=== PATIENT | male | born 1955 | race Caucasian/White ===

== ENCOUNTER 2018-09-19 15:01 | Inpatient (IN) ==
[2018-09-19] MEDS ORDERED: *HR* Labetalol 20 MG/4 ML SYRINGE IVP PRN (16:35)
[2018-09-19] MEDS ORDERED: Naloxone 0.4 MG/ML INJ IVP PRN (16:35)
[2018-09-19] MEDS ORDERED: *HR* Heparin 5,000 UNIT/ML VIAL IVP PRN ×4 (16:35→19:24)
[2018-09-19] MEDS ORDERED: Ondansetron 4 MG/2 ML VIAL IVP PRN (16:35)
[2018-09-19] MEDS ORDERED: Acetaminophen 325 MG TABLET PO PRN (16:35)
[2018-09-19] MEDS ORDERED: *HR* OxyCODONE Immed Rel 5 MG TABLET PO PRN (16:35)
[2018-09-19] MEDS ORDERED: *HR* Heparin 5,000 UNIT/ML VIAL IVP ONE ×2 (16:35→19:24)
[2018-09-19] MEDS ORDERED: 0.9 % Sodium Chloride 1,000 ML IVC SCH (16:45)
[2018-09-19] MEDS ORDERED: Heparin 25,000 UNIT/250 ML D5W 25,000 UNIT/250 ML IV.SOLN IVC SCH ×2 (16:45→19:30)
[2018-09-19] MEDS ORDERED: D5% in Water 1,000 ML IVC PRN (16:52)
[2018-09-19] MEDS ORDERED: Dextrose Gel 15 GM/37.5 ML TUBE PO PRN ×2 (16:52)
[2018-09-19] MEDS ORDERED: *HR* Dextrose 50 % in Water (Syg) 50 ML SYRINGE IVP PRN (16:52)
--- NOTE | 2018-09-19 17:02 | Vascular/Endovascular H&P ---
Date of Encounter: 09/19/18 Time of Encounter: 15:00 Assessment and Plan (1) Atherosclerosis of [place] arteries of left leg with ulceration of other part of foot Current Visit: Yes Status: Chronic The patient has severe peripheral vascular disease. He was found have a left superficial femoral to popliteal artery occlusion. He was started on a heparin drip due to his progressive ischemia. Revascularization is recommended. The patient will be scheduled for a left femoral to popliteal artery bypass graft. The risks, benefits and alternatives were discussed and all questions were answered. (2) Diabetes mellitus with peripheral angiopathy without gangrene Current Visit: Yes Status: Chronic Qualifiers: Diabetes mellitus type: type 2 Diabetes mellitus emt intermediate insulin use: without nursing home use Qualified Code(s): E11.51 - Type 2 diabetes mellitus with diabetic peripheral angiopathy without gangrene (3) Tobacco abuse Current Visit: Yes Status: Chronic The patient was counter maximum visualization. He will use a nicotine patch. (4) Mixed hyperlipidemia Current Visit: Yes Status: Chronic (5) Essential hypertension Current Visit: Yes Status: Chronic The patient was counseled regarding atherosclerotic risk factor reduction. (6) Cellulitis Current Visit: Yes Status: Acute The patient is a chronic left lateral foot ulceration with surrounding erythema consistent with cellulitis. He has no fluctuance or purulence. He will be started on intravenous antibiotics. Qualifiers: Site of cellulitis: extremity Site of cellulitis of extremity: lower extr emity Laterality: left Qualified Code(s): L03.116 - Cellulitis of left lower limb (7) Coronary artery disease Current Visit: Yes Status: Chronic The patient recently underwent a nonexercise stress test. Stress test revealed evidence of stress-induced ischemia. Cardiology has been counseled for preoperative clearance and further evaluation and recommendations. Qualifiers: Coronary Disease-Associated Artery/Lesion type: [place] artery [place] vs. transplanted heart: [place] heart Associated angina: without angina Qualified Code(s): I25.10 - Atherosclerotic heart disease of [place] coronary artery without angina pectoris History of Present Illness Chief complaint: Peripheral vascular disease with ulceration HPI: Mr. Miramontes is a 63 year old male with a history of diabetes, hyperlipidemia, hypertension, tobacco abuse and peripheral vascular disease. The patient presented to clinic with peripheral vascular disease with a nonhealing ulceration. He underwent angiogram which revealed significant peripheral vascular disease. Patient presented to the hospital today underwent a nonexercise stress test. This process was noted to be abnormal. The patient reports progressive left lower extremity pain with evidence of progressive peripheral vascular disease. He currently denies chest pain or shortness of breath. He denies any fevers or chills. Past Med Surg Social Fam HX - Past Medical History Medical history: diabetes, hyperlipidemia, hypertension, myocardial infarction, peripheral artery disease Psychiatric history: no psych history - Past Surgical History Surgical History: no surgical history Additional surgical history: amputation left 4th toe 2010, rt hip repair 2017 - Social History Smoking Status: Current every day smoker Smokeless Tobacco Status: No Alcohol use: none Drug use: none - Family History Father History Unknown: Yes Mother History Unknown: Yes Medications and Allergies Acetaminophen [Tylenol] 1,000 mg PO Q6HR PRN #90 tablet 09/17/18 [Rx] Aspirin [Lo-Dose Aspirin EC] 81 mg PO DAILY 09/17/18 [History] Cilostazol [Pletal] 100 mg PO BID 09/17/18 [History] Collagenase Oint [Santyl] 1 appl TP DAILY 09/17/18 [History] Lisinopril [Zestril] 5 mg PO DAILY 09/17/18 [History] Metformin HCl 1,000 mg PO BID 09/17/18 [History] glipiZIDE [Glipizide] 10 mg PO BID 09/17/18 [History] Pioglitazone HCl [Actos] 45 mg PO DAILY 09/19/18 [History] Allergy/AdvReac Type Severity Reaction Status Date / Time steroids Allergy Swelling Uncoded 09/17/18 05:48 of Lip/Tongue/Throat All Systems Review: The remainder of the systems were reviewed and are negative - Constitutional Constitutional: no chills, no fever(s) - Cardiovascular Cardiovascular: no chest pain at rest, no dyspnea at rest Exam General: Present: Conversant HEENT: Present: Normocephaly, Trachea midline, Pupils equal Neck: Absent: JVD, Lymphadenopathy, Left Carotid bruit, Right Carotid bruit Cardiac: Present: Reg Rate and Rhythm, Normal S1 and S2 Lungs: Present: Normal Breath Sounds, No Wheeze, Rales, Rhonchi Neuro: Present: Alert and responsive, No focal deficits noted, Motor nerves grossly intact, Sensory nerves grossly intact Abdomen: Present: Soft, Non-tender Vascular: Present: Normal capillary refill, Pulse, absent (pedal signals monophasic). Absent: Cyanosis, Edema Skin: Present: Wound/ulcer(s) (Left lateral foot ulceration with surronding erythema, no fluctuance, purulence) Results - Imaging / Other Tests Non Invasive Vascular Testing: report reviewed
[2018-09-19 17:27] LABS: Hematocrit 33.6 % (37.5-50.1); Mean Corpuscular HGB Conc 32.7 g/dL (31.6-35.5); Mean Corpuscular Hemoglobin 30.7 pg (28.0-33.3); Mean Corpuscular Volume 93.9 fL (83.0-100.0); Mean Platelet Volume 11.1 fL (9.4-12.4); Platelet Count 171 K/mcL (140-400); Red Blood Count 3.58 M/mcL (4.19-5.50); Red Cell Distribution Width 13.9 % (11.5-14.5); White Blood Count 12.9 K/mcL (4.3-11.1)
[2018-09-19 17:35] LABS: INR 0.9; Prothrombin Time 10.7 Seconds (9.4-12.1)
[2018-09-19 18:44] LABS: Heparin anti-factor XA UFH 0.04 IU/mL (0.30-0.70)
[2018-09-19] MEDS: Insulin LISPRO 300 UNITS/3 ML VIAL SQ SCH (19:26)
[2018-09-19] MEDS: *HR* Metoprolol 5 MG/5 ML VIAL IVP SCH (19:33)
[2018-09-19] MEDS: *HR* HYDROcodone/Acet 5/325 mg TABLET PO PRN (19:33)
[2018-09-19] MEDS: Nicotine 21 MG PATCH.TD24 TD SCH (19:39)
--- NOTE | 2018-09-19 20:34 | Anesthesia Evaluation PreOp ---
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 Any Significant HX Other Medical History: Renal (ckd), Diabetes Type II (does not use insulin) Anesthesia History: No Prior Anesthetic Complications, Past Anesthesia (amputation left 4th toe 2010, right hip surgery x 2, cataract surgery) Alcohol Use: none Drug use: none Medications and Allergies Acetaminophen [Tylenol] 1,000 mg PO Q6HR PRN #90 tablet 09/17/18 [Rx] Aspirin [Lo-Dose Aspirin EC] 81 mg PO DAILY 09/17/18 [History] Cilostazol [Pletal] 100 mg PO BID 09/17/18 [History] Collagenase Oint [Santyl] 1 appl TP DAILY 09/17/18 [History] Lisinopril [Zestril] 5 mg PO DAILY 09/17/18 [History] Metformin HCl 1,000 mg PO BID 09/17/18 [History] glipiZIDE [Glipizide] 10 mg PO BID 09/17/18 [History] Pioglitazone HCl [Actos] 45 mg PO DAILY 09/19/18 [History] Allergy/AdvReac Type Severity Reaction Status Date / Time steroids Allergy Swelling Uncoded 09/17/18 05:48 of Lip/Tongue/Throat - Meds/Allergy Pre-op Review Medications Reviewed: Yes Allergies Reviewed: Yes Beta Blockers on Current Med List: No Anesthesia Results - Labs 09/19/18 17:00 Laboratory Tests 09/16/18 09/17/18 09/19/18 16:18 11:10 16:57 Sodium 139 Potassium 4.3 Chloride 114 H Carbon Dioxide 15 L BUN 28 H Creatinine 1.52 H Est GFR ( Amer) 57 L Est GFR (Non-Af Amer) 47 L BUN/Creatinine Ratio 18 Glucose 74 POC Glucose 92 Est Mean Plasma Glucose 157 Hemoglobin A1c 7.1 H - Imaging EKG: report reviewed, image reviewed (SINUS RHYTHM INFERIOR MYOCARDIAL INFARCTION, PROBABLY OLD, changes present 05/2010) Additional studies: 09-19-18 Nuclear stress: Impression: Medium sized, partially fixed perfusion defect involving the inferior wall with worsening of perfusion during stress. Findings represent infarct with moderate lisa-infarct ischemia. SDS 6 Pharmacologic stress ECG is negative for ischemia at level of heart rate achieved. Gated EF = 54%. Findings communicated to ordering provider. 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
[2018-09-19] MEDS: Piperacillin/Tazobactam 3.375 GM in 0.9 % Sodium Chloride Mini Bag 100 ML IVPB SCH (20:39)
[2018-09-20] MEDS: Insulin LISPRO 300 UNITS/3 ML VIAL SQ SCH ×5 (00:39→23:42)
[2018-09-20] MEDS: *HR* Metoprolol 5 MG/5 ML VIAL IVP SCH ×5 (00:43→23:34)
[2018-09-20 03:47] LABS: Basophils # 0.1 K/mcL (0.0-0.2); Basophils % 0.9 %; Eosinophils % 9.5 %; Hemoglobin 9.6 g/dL (12.9-16.9); Immature Granulocytes % 0.4 % (0-4); Lymphocytes # 2.1 K/mcL (0.6-4.6); Mean Corpuscular Hemoglobin 30.6 pg (28.0-33.3); Mean Corpuscular Volume 95.5 fL (83.0-100.0); Mean Platelet Volume 11.6 fL (9.4-12.4); Monocytes # 0.7 K/mcL (0.0-1.3); Neutrophils # 6.4 K/mcL (1.6-8.9); Platelet Count 156 K/mcL (140-400); Red Blood Count 3.14 M/mcL (4.19-5.50); Red Cell Distribution Width 13.9 % (11.5-14.5); Segmented Neutrophils % 62.2 %; White Blood Count 10.3 K/mcL (4.3-11.1)
[2018-09-20 04:06] LABS: Calcium 8.6 mg/dL (8.6-10.3); Potassium 4.5 mEq/L (3.5-5.1)
[2018-09-20] MEDS: Piperacillin/Tazobactam 3.375 GM in 0.9 % Sodium Chloride Mini Bag 100 ML IVPB SCH ×3 (04:36→20:22)
[2018-09-20] MEDS: Nicotine 21 MG PATCH.TD24 TD SCH (08:01)
[2018-09-20] MEDS ORDERED: Aspirin Enteric Coated 81 MG Tablet PO SCH (09:00)
[2018-09-20] MEDS ORDERED: Collagenase Oint 1 APPL GRAM TP SCH (09:00)
[2018-09-20] MEDS ORDERED: NiCARdipine 2.5 MG/10 ML Syringe IVPB ONE (10:20)
[2018-09-20] MEDS ORDERED: Nitroglycerin 25 MG/250 ML INFUS..BTL IVC ONE (10:20)
[2018-09-20] MEDS ORDERED: *HR* FentaNYL (PF) 100 MCG/2 ML VIAL ONE (10:21)
[2018-09-20] MEDS ORDERED: *HR* Propofol 200 MG/20 ML VIAL IVP ONE (10:22)
[2018-09-20] MEDS ORDERED: *HR* Midazolam HCl 2 MG/2 ML VIAL ONE (10:22)
[2018-09-20] MEDS ORDERED: *HR* Succinylcholine 200 MG/10 ML VIAL IVP ONE (10:23)
[2018-09-20] MEDS ORDERED: Ondansetron 4 MG/2 ML VIAL ONE (10:23)
[2018-09-20] MEDS ORDERED: Lidocaine -MPF 2% 2 ML VIAL ONE (10:23)
[2018-09-20] MEDS ORDERED: Lidocaine -MPF 4% 5 ML AMPUL ONE (10:23)
[2018-09-20] MEDS ORDERED: *HR* Phenylephrine 10 MG/ML VIAL ONE ×3 (10:23→15:15)
[2018-09-20] MEDS ORDERED: *HR* Rocuronium Bromide 50 MG/5 ML VIAL ONE (10:23)
[2018-09-20] MEDS ORDERED: Dexamethasone 4 MG/ML VIAL ONE (10:23)
[2018-09-20] MEDS ORDERED: Vancomycin 1,000 MG, Sodium Chloride IRRigation 1,000 ML IR ONE (10:40)
[2018-09-20] MEDS ORDERED: *HR* Remifentanil 2 MG VIAL IVP ONE (10:45)
[2018-09-20] MEDS: *HR* HYDROcodone/Acet 5/325 mg TABLET PO PRN (11:00)
--- NOTE | 2018-09-20 11:12 | Cardiology Consult Note ---
<Sara Velasquez - Last Filed: 09/20/18 11:15> Date of Encounter: 09/20/18 Time of Encounter: 10:30 Assessment and Plan (1) Preop cardiovascular exam Current Visit: Yes Status: Acute Per cardiology: -Preop risk stratification for fem-pop bypass under general anesthesia. -No active cardiac symptoms. -Stress test 09/19/18 with medium sized, partially fixed perfusion defect involving inferior wall with worsening perfusion during stress. Findings represent infarct with moderate lisa-infarct ischemia. SDS 6. Gated EF 54%. Reports previous history of abnormal stress test, however denies LHC. -ECG with SR, HR 94. Inferior Q eaves noted. -Reports able to achieve 4 METs. -Discussed and reviewed with , with abnormal stress test, patient is at least moderate risk for surgery. -Can consider outpatient LHC for abnormal stress test once healed from surgery. (2) Abnormal stress test Current Visit: Yes Status: Acute Per cardiology: -Stress test abnormal as above. -ON asa -Consider addition of BB, statin prior to discharge. -Can consider outpatient LHC once recovered from surgery. Discussion w patient/family: The assessment and plan as outlined above was discussed with the patient and/or family members who expressed understanding and agreement. All questions were answered. Thank you for involving us in the care of your patient. Please call with any questions. Discussed and reviewed with . History of Present Illness Consult date: 09/19/18 Requesting physician: José Miguel Penny Consult reason: preop Chief complaint: leg pain History of present illness: Mr. Miramontes is a 63 year old male with a relevant past medical history of PAD, DM, HLD, HTN, osteomyelitis, non-healing ulcer, who presented yesterday to [facility] for stress test for preop. Patient's stress test was abnormal and patient was admitted to the hospital. Cardiology has been consulted for preop risk stratification. Patient states he was told 8 years ago that he had a previous [place] per stress test. However denies previous LHC. Patient denies chest pain, increased shortness of breath. Reports chronic fatigue. States able to achieve 4 METs by walking up a flight of stairs. Past Med Surg Social Fam HX - Past Medical History Attestation: Yes The following information was validated with the patient. Source: patient, old records reviewed Medical history: diabetes, hyperlipidemia, hypertension, myocardial infarction, peripheral artery disease Psychiatric history: no psych history - Past Surgical History Surgical History: no surgical history Additional surgical history: amputation left 4th toe 2010, rt hip repair 2016 - Social History Smoking Status: Current every day smoker Smokeless Tobacco Status: No Alcohol use: none Drug use: none - Family History Father History Unknown: Yes Mother History Unknown: Yes Medications and Allergies Acetaminophen [Tylenol] 1,000 mg PO Q6HR PRN #90 tablet 09/17/18 [Rx] Aspirin [Lo-Dose Aspirin EC] 81 mg PO DAILY 09/17/18 [History] Cilostazol [Pletal] 100 mg PO BID 09/17/18 [History] Collagenase Oint [Santyl] 1 appl TP DAILY 09/17/18 [History] Lisinopril [Zestril] 5 mg PO DAILY 09/17/18 [History] Metformin HCl 1,000 mg PO BID 09/17/18 [History] glipiZIDE [Glipizide] 10 mg PO BID 09/17/18 [History] Pioglitazone HCl [Actos] 45 mg PO DAILY 09/19/18 [History] Allergy/AdvReac Type Severity Reaction Status Date / Time steroids Allergy Swelling Uncoded 09/17/18 05:48 of Lip/Tongue/Throat All Systems Review: The remainder of the systems were reviewed and are negative - Cardiovascular Cardiovascular: as per HPI - Integumentary Integumentary: other (non-healing ulcer) Physical Examination Vital Signs, Last 4 Hours Temp Pulse Resp BP Pulse Ox 09/20/18 08:17 67 09/20/18 07:31 97.9 F 71 18 119/62 97 General: Conversant, No Apparent Distress HEENT: Atraumatic, Normocephaly, Mucus Membranes Moist Neck: No JVD, Normal carotid pulses Cardiac: Reg Rate and Rhythm, Normal S1 and S2, No Murmur Lungs: Normal Breath Sounds, No Wheeze, Rales, Rhonchi Neuro: Alert and responsive, No focal deficits noted Abdomen: Soft, Non-Tender Skin: No rashes noted on visualized skin Musculoskeletal: No Chest Wall Tenderness Extremities: No Clubbing, No Cyanosis, Normal Pulses, Other (Mild bilateral lower extremity edema noted, non-pitting. ) Results 09/20/18 02:43 09/20/18 02:43 Lab Results Active Medications Acetaminophen (Tylenol) 650 mg PO Q6HR PRN PRN Reason: Mild Pain/Fever Stop: 03/21/19 16:36 Hydrocodone Bitart/Acetaminophen ([place] 5-325 Mg) 1 tab PO Q6HR PRN PRN Reason: Moderate Pain Stop: 03/21/19 16:36 Last Admin: 09/19/18 19:33 Dose: 1 tab Documented by: Aspirin (Aspirin Ec) 81 mg PO DAILY [facility] Stop: 03/22/19 09:01 Last Admin: 09/20/18 07:54 Dose: Not Given Documented by: Collagenase (Santyl) 1 appl TP DAILY [facility] Stop: 03/22/19 09:01 Dextrose/Water (Dextrose 50% (Syg)) 25 ml IVP AD PRN PRN Reason: Hypoglycemia Stop: 03/21/19 16:53 Glucagon (Glucagen) 1 mg IM ONCE PRN PRN Reason: Hypoglycemia Stop: 03/21/19 16:53 Glucose (Gluctose) 15 gm PO ONCE PRN PRN Reason: Hypoglycemia Stop: 03/21/19 16:53 Glucose (Gluctose) 30 gm PO ONCE PRN PRN Reason: Hypoglycemia Stop: 03/21/19 16:53 Heparin Sodium (Porcine) (Heparin) 6,300 unit 70 unit/kg (6300 unit) IVP Q6HR PRN PRN Reason: SEE COMMENTS Stop: 03/21/19 19:25 Heparin Sodium (Porcine) (Heparin) 3,100 unit 35 unit/kg (3100 unit) IVP Q6H PRN PRN Reason: SEE COMMENTS Stop: 03/21/19 19:25 Hydralazine HCl (Hydralazine) 10 mg IVP Q1H PRN PRN Reason: Hypertension Stop: 03/21/19 16:36 Dextrose (Dextrose 5%) 1,000 mls @ 100 mls/hr IVC .Q10H PRN PRN Reason: HYPOGLYCEMIA Stop: 03/21/19 16:53 Piperacillin Sod/Tazobactam (Sod 3.375 gm/ Sodium Chloride) 100 mls @ 25 mls/hr IVPB Q8H [facility] Stop: 03/21/19 20:01 Last Admin: 09/20/18 04:36 Dose: 25 mls/hr Documented by: Vancomycin HCl 1,250 mg/ (Sodium Chloride) 250 mls @ 166.67 mls/hr IVPB Q12H [facility] Stop: 03/21/19 20:01 Last Admin: 09/20/18 07:59 Dose: 167 mls/hr Documented by: Heparin Sodium/Dextrose (Heparin 25,000 Unit/250 Ml D5w) 25,000 unit in 250 mls @ 12.572 mls/hr IVC .[id number] [facility]; Protocol Stop: 03/21/19 19:31 Last Titration: 09/20/18 04:17 Dose: 14.03 unit/kg/hr, 12.6 mls/hr Documented by: Insulin Human Lispro (Humalog) 0 units SQ Q6HR [facility]; Protocol Stop: 03/21/19 18:01 Last Admin: 09/20/18 05:58 Dose: 4 units Documented by: Labetalol HCl (Labetalol) 10 mg IVP Q1H PRN PRN Reason: SBP greater than 160 Stop: 03/21/19 16:36 Lisinopril (Zestril) 5 mg PO DAILY [facility]; Protocol Stop: 03/22/19 09:01 Last Admin: 09/20/18 07:54 Dose: Not Given Documented by: Metoprolol Tartrate (Lopressor) 5 mg IVP Q6HR [facility] Stop: 03/21/19 18:01 Last Admin: 09/20/18 05:56 Dose: 5 mg Documented by: Naloxone HCl (Narcan) 0.4 mg IVP Q2MPRN PRN PRN Reason: SEE COMMENTS Stop: 03/21/19 16:36 Nicotine (Nicoderm) 21 mg TD DAILY [facility]; Protocol Stop: 03/21/19 17:01 Last Admin: 09/20/18 08:01 Dose: 21 mg Documented by: Ondansetron HCl (Zofran) 4 mg IVP Q8HR PRN PRN Reason: Nausea And Vomiting Stop: 03/21/19 16:36 Oxycodone HCl (Roxicodone) 10 mg PO Q6HR PRN PRN Reason: Severe Pain Stop: 03/21/19 16:36 Last Admin: 09/20/18 05:54 Dose: 10 mg Documented by: Oxycodone HCl (Oxycodone Oral Conc) 5 mg SL Q4H PRN; Protocol PRN Reason: mild to moderate pain Stop: 03/21/19 16:36 Oxycodone HCl (Oxycodone Oral Conc) 10 mg SL Q4H PRN; Protocol PRN Reason: Severe Pain Stop: 03/21/19 16:36 Laboratory Tests 09/20/18 09/20/18 02:43 02:43 Hgb 9.6 L Creatinine 1.78 H - Imaging and Cardiology Stress Test: report reviewed Echo: pending - EKG Interpretation EKG results cardiology: personally reviewed (ECG with SR, HR 94. Inferior Q waves noted.), other (Telemetry reviewed with average HR previous 12 hours noted to be 73, SR. PVCs, PACs noted.) <Bibi Young - Last Filed: 09/20/18 11:39> Date of Encounter: 09/20/18 - Attending Attestation I examined this patient and my medical decision-making was reviewed with the FINISH REPAIR WORKER. I agree with the documented findings, disposition and treatment plan as described. Mr. Miramontes is a 63-year-old male undergoing preoperative risk stratification prior to femoropopliteal bypass under general anesthesia. Patient denies active cardiac symptoms and reports being able to achieve 4 METS of activity. He recently underwent stress testing on 09/19/2018 which was personally reviewed demonstrating moderate ischemia in the RCA territory. LV systolic function is preserved. Patient's cardiac risk for surgery is at least moderate. However, there are no high risk findings on stress testing and vascular surgery is limited to the extremities. This was discussed with the patient who expressed understanding of cardiac risk for surgery. Patient expressed interest in proceeding. Recommend careful anesthesia guidance as to avoid periods of hypo/hypertension and minimize blood loss. Assessment and Plan Discussion w patient/family: The assessment and plan as outlined above was discussed with the patient and/or family members who expressed understanding and agreement. All questions were answered. Thank you for involving us in the care of your patient. Please call with any questions. History of Present Illness History of present illness: Mr. Miramontes is a 63 year old male All Systems Review: The remainder of the systems were reviewed and are negative Physical Examination Vital Signs, Last 4 Hours Temp Pulse Resp BP Pulse Ox 09/20/18 08:17 67 09/20/18 07:31 97.9 F 71 18 119/62 97 Results 09/20/18 02:43 09/20/18 02:43 Lab Results 09/19/18 09/19/18 09/20/18 17:00 17:00 02:43 WBC 12.9 H 10.3 Hgb 11.0 L 9.6 L Hct 33.6 L 30.0 L Plt Count 171 156 INR 0.9 Sodium Potassium Chloride Carbon Dioxide BUN Creatinine Glucose Calcium 09/20/18 02:43 WBC Hgb Hct Plt Count INR Sodium 141 Potassium 4.5 Chloride 113 H Carbon Dioxide 18 L BUN 31 H Creatinine 1.78 H Glucose 92 Calcium 8.6
[2018-09-20] MEDS ORDERED: Vancomycin 1,000 MG VIAL ONE (11:56)
[2018-09-20] MEDS ORDERED: Heparin 1,000 UNITS/500 mL 1,000 ML ONE (11:56)
[2018-09-20] MEDS ORDERED: Albuterol 2.5 MG/3 ML NEBULIZER IH ONE (11:56)
[2018-09-20] MEDS ORDERED: Albuterol 2.5 MG/3 ML NEBULIZER ONE (11:58)
--- NOTE | 2018-09-20 11:58 | Anesthesia Procedures ---
Date of Encounter: 09/20/18 Time of Encounter: 11:50 Procedures: Anesthesia - Arterial Line Consent obtained: written consent Time out performed: Yes Sedation: Versed (mg): 0 Sedation: Fentanyl (mcg): 0 Supplemental Oxygen via Nasal Cannula (L/min): 2 Local Anesthetic: Lidocaine 1% Amount of Anesthetic used (mls): 3 Size (Gauge): 20 Length (inches): 1 3/4 Technique Used: sterile prep, guide wire technique, direct puncture technique Post-Procedure: line taped into place, dry sterile dressing placed Patient tolerated procedure: well, no complications Complications: none Site: Radial R Vitals: HR 73 BP 151/68 RR 18 SpO2 98%
[2018-09-20] MEDS ORDERED: Acetaminophen IV 1,000 MG/100 ML INFUS..BTL ONE (12:01)
[2018-09-20] MEDS ORDERED: Calcium Gluconate 1,000 MG/10 ML VIAL ONE (12:35)
[2018-09-20] MEDS ORDERED: *HR* Heparin 5,000 UNIT/ML VIAL ONE (13:42)
[2018-09-20] MEDS ORDERED: ceFAZolin 2,000 MG in Water for inj. (sterile) 20 ML IVP ONE (13:45)
[2018-09-20] MEDS ORDERED: *HR* HYDROmorphone (PF) 1 MG/ML SYRINGE IVP PRN (14:23)
[2018-09-20] MEDS ORDERED: *HR* OxyCODONE Immed Rel 5 MG TABLET PO PRN (14:23)
[2018-09-20] MEDS ORDERED: *HR* Metoprolol 5 MG/5 ML VIAL IVP ONE (16:07)
--- NOTE | 2018-09-20 16:52 | Anesthesia Evaluation Post Op ---
Date of Encounter: 09/20/18 Time of Encounter: 17:00 - Vital Signs Vital Signs: Vital Signs/O2 Sat/Glucose, Most Current Temp Pulse Resp BP Pulse Ox 09/20/18 16:45 74 14 129/64 100 09/20/18 16:35 74 16 130/67 99 09/20/18 16:25 97.7 F 85 16 126/66 99 - Lungs Lungs: Clear Ascult./Percussion - Airway Airway: Non-obstructed - Cardiovascular Regular Rate - Mental Status Mental Status: Alert & Oriented, Answers Appropriately - Pain Pain Scale: 0 - Nausea Vomiting Nausea Vomiting: Not Present - Hydration Hydration: Ice chips - Discharge PostOp Status: Transfer Patient to floor
--- NOTE | 2018-09-20 17:13 | Operative Note ---
Date of procedure: 09/20/18 Pre-op diagnosis: Peripheral vascular disease with nonhealing ulcer Post-op diagnosis: same Procedure: 1. Left femoral to above-knee popliteal artery bypass graft with 6 mm ring reinforced Distaflo small cuff graft. 2. Left iliofemoral artery endarterectomy. 3. Left deep femoral artery endarterectomy. Complications: None Anesthesia: GETA Surgeon: José Miguel Penny Was there an anesthesia assistant present: No Estimated blood loss (cc): 100 Specimen: Left lower extremity plaque Condition: stable Disposition: PACU Procedure in Detail: Indications: The patient is a 63-year-old male with a history of peripheral vascular disease with nonhealing ulceration of the right foot. He also has a history of hyperkalemia, hypertension and tobacco abuse. He was found have significant left lower extremity peripheral vascular disease on angiography. Revascularization was recommended to reduce his risk of limb loss and to promote healing. Procedure: The patient was identified in the preoperative area. The risks, benefits, and alternatives of the procedure were discussed. All questions were answered. The patient was taken to the operating room and placed in supine position on the operating room table. After the induction of general endotracheal anesthesia, he was cleaned and draped in normal sterile fashion. An oblique incision was made over the left groin sharply. Hemostasis was obtained with electrocautery. Through a process of blunt, sharp, and electrocautery dissection, the left distal external iliac artery, common, deep and superficial femoral arteries were dissected circumferentially and surrounded with vessel loops. An incision was made on the left medial distal thigh sharply. Hemostasis was obtained with electrocautery. Through a process of blunt, sharp, and electrocautery dissection, the right above-knee popliteal artery was dissected proximally and distally and surrounded with vessel loops. A graft was tunneled between the popliteal and femoral incisions. The patient received 5000 units of heparin intravenously. Additional heparin was given throughout the case to maintain adequate anticoagulation. The popliteal vessels were occluded and a longitudinal arteriotomy was made in the popliteal artery. The distal end of the graft was sutured in place with a running 6-0 Prolene, but not tied. Heparinized saline was infused into the lumen. Tension was applied to the femoral vessel loops. An arteriotomy was made in the common femoral artery. Dense, calcified and nearly occlusive plaque was noted to extend from the external iliac through the common femoral and into the deep femoral artery. Limited flow was noted through the external iliac artery into the common femoral artery. However strong pulsatile flow to be palpated proximal to the nearly occlusive thrombus in the external iliac artery. Using a dental freer and iliofemoral endarterectomy was performed. A post was some iliofemoral endarterectomy strong pulsatile antegrade flow was noted. The endarterectomy was extended into the deep femoral artery due to poor retrograde flow. Upon completion of the deep femoral endarterectomy, vigorous retrograde flow was noted. The proximal end of the bypass graft was cut to fit the long arteriotomy The graft was anastamosed with a running 6-0 Prolene. The vessels were flushed through the graft and heparin was infused into the lumen. The graft was clamped with an atraumatic clamp. Thrombin and gelfoam were used at the proximal anastamosis. The distal arterial anastomosis was completed and prior to completing the closure, the popliteal vessels were flushed and reoccluded. Heparinized saline was infused into the lumen. The anastamosis was tied and then flow was restored. Polyphasic signals were noted distal to the distal anastomosis as well as at the posterior tibial artery. Wounds were irrigated with antibiotic-containing saline. Thrombin and gelfoam were used to aid in hemostasis. Platelet rich and platelet poor plasma were infused into the wounds. Meticulous hemostasis was obtained throughout the wound with electrocautery. Wounds were reapproximated with layers of 2-0 and 3-0 Vicryl. Skin was reapproximated with 3-0 Monocryl. Sterile dressing was applied. The patient was extubated and taken to recovery room in stable condition.
[2018-09-20] MEDS ORDERED: Ondansetron 4 MG/2 ML VIAL IVP PRN (17:30)
[2018-09-20] MEDS ORDERED: *HR* Labetalol 20 MG/4 ML SYRINGE IVP PRN (17:30)
[2018-09-20] MEDS ORDERED: *HR* Dextrose 50 % in Water (Syg) 50 ML SYRINGE IVP PRN (17:30)
[2018-09-20] MEDS ORDERED: Naloxone 0.4 MG/ML INJ IVP PRN (17:30)
[2018-09-20] MEDS ORDERED: D5% in Water 1,000 ML IVC PRN (17:30)
[2018-09-20] MEDS ORDERED: *HR* HYDROcodone/Acet 5/325 mg TABLET PO PRN (17:30)
[2018-09-20] MEDS ORDERED: Dextrose Gel 15 GM/37.5 ML TUBE PO PRN ×2 (17:30)
[2018-09-20] MEDS ORDERED: Acetaminophen 325 MG TABLET PO PRN (17:30)
[2018-09-20] MEDS: *HR* OxyCODONE Immed Rel 5 MG TABLET PO PRN (23:35)
[2018-09-21] MEDS: Piperacillin/Tazobactam 3.375 GM in 0.9 % Sodium Chloride Mini Bag 100 ML IVPB SCH (03:45)
[2018-09-21] MEDS: Insulin LISPRO 300 UNITS/3 ML VIAL SQ SCH ×2 (05:36→11:29)
[2018-09-21] MEDS: *HR* Metoprolol 5 MG/5 ML VIAL IVP SCH ×2 (05:36→11:31)
[2018-09-21] MEDS ORDERED: *HR* Heparin 5,000 UNIT/ML VIAL SQ SCH (06:00)
[2018-09-21 08:54] LABS: Basophils # 0.1 K/mcL (0.0-0.2); Basophils % 0.6 %; Eosinophils # 0.8 K/mcL (0.0-0.6); Eosinophils % 5.8 %; Hematocrit 32.5 % (37.5-50.1); Hemoglobin 10.5 g/dL (12.9-16.9); Immature Granulocytes % 0.5 % (0-4); Lymphocytes # 1.5 K/mcL (0.6-4.6); Mean Corpuscular HGB Conc 32.3 g/dL (31.6-35.5); Mean Corpuscular Hemoglobin 30.9 pg (28.0-33.3); Mean Corpuscular Volume 95.6 fL (83.0-100.0); Mean Platelet Volume 10.6 fL (9.4-12.4); Monocytes % 7.4 %; Platelet Count 151 K/mcL (140-400); Segmented Neutrophils % 74.7 %; White Blood Count 13.3 K/mcL (4.3-11.1)
[2018-09-21] MEDS ORDERED: Aspirin Enteric Coated 81 MG Tablet PO SCH (09:00)
[2018-09-21] MEDS ORDERED: Nicotine 21 MG PATCH.TD24 TD SCH (09:00)
[2018-09-21 09:13] LABS: BUN/Creatinine Ratio 15 (6-26); Blood Urea Nitrogen 20 mg/dL (8-23); Calcium 8.5 mg/dL (8.6-10.3); Carbon Dioxide 18 mEq/L (23-29); Chloride 111 mEq/L (98-107); Glucose 147 mg/dL (70-105); Osmolality,Calculated 289 (280-300); Potassium 4.7 mEq/L (3.5-5.1); Sodium 137 mEq/L (136-145); eGFR For African Americans > 60 (> 60); eGFR For Non-African Americans 56 (> 60)
[2018-09-21] MEDS: *HR* OxyCODONE Immed Rel 5 MG TABLET PO PRN (09:22)
--- NOTE | 2018-09-21 11:02 | Discharge Summary ---
Orders not resulted at time of discharge: Pending orders 09/20/18 07:36 Red Blood Cells [BBK] Routine 09/20/18 14:54 Surgical Pathology [PTH] Routine Date of Encounter: 09/21/18 Time of Encounter: 12:00 - Discharge Diagnosis (1) Atherosclerosis of [place] arteries of left leg with ulceration of other part of foot Priority: Primary Status: Chronic Comments: The patient is postoperative day #1 status post left femoral to popliteal artery bypass graft and left lower extremity endarterectomy. His foot is warm. He has polyphasic signals. His compartments are soft. [facility] (2) Diabetes mellitus with peripheral angiopathy without gangrene Priority: Secondary Status: Chronic Qualifiers: Diabetes mellitus type: type 2 Diabetes mellitus intermediate insulin use: without intermediate use Qualified Code(s): E11.51 - Type 2 diabetes mellitus with diabetic peripheral angiopathy without gangrene (3) Tobacco abuse Priority: Secondary Status: Chronic (4) Mixed hyperlipidemia Priority: Secondary Status: Chronic (5) Essential hypertension Priority: Secondary Status: Chronic (6) Cellulitis Priority: Secondary Status: Acute Comments: The patient is a resolving cellulitis. He remains afebrile. He will be discharged on oral antibiotics. Qualifiers: Site of cellulitis: extremity Site of cellulitis of extremity: lower extremity Laterality: left Qualified Code(s): L03.116 - Cellulitis of left lower limb (7) Coronary artery disease Priority: Secondary Status: Chronic Comments: The patient had an abnormal stress test. He was evaluated by cardiology. He will begin metoprolol 12.5 mg twice daily. He will continue with his daily aspirin. He will be scheduled to follow-up with cardiology as an outpatient. Qualifiers: Coronary Disease-Associated Artery/Lesion type: [place] artery [place] vs. transplanted heart: [place] heart Associated angina: without angina Qualified Code(s): I25.10 - Atherosclerotic heart disease of [place] coronary artery without angina pectoris (8) Chronic disease anemia Priority: Secondary Status: Chronic Comments: The patient has a chronic anemia. He is hemodynamically stable without any evidence of ongoing blood loss. (9) Chronic kidney disease, stage 3 Priority: Secondary Status: Chronic - Hospital Course Hospital course: Mr. Miramontes is a 63 year old male who was admitted to [facility] on 09/19/2018 for progressive cellulitis as well as peripheral vascular disease with left forefoot ulceration he was started on intravenous antibiotics. He was also started on intravenous anticoagulation.. The patient had AN abnormal stress test and was evaluated by cardiology. He was cleared for surgery. Patient underwent a left femoral to popliteal artery bypass graft as well as left lower extremity endarterectomy on 09/20/2018. He tolerated the procedure well. On postoperative day #1 he was healing well. He was discharged home in stable condition without complication on oral antibiotics. He was also started on metoprolol. Time spent discussing smoking cessation with patient: 3 to 10 minutes - Time Spent with Patient Total time spent providing and/or coordinating discharge services: - Discharge Medications Prescriptions: New Clindamycin HCl 300 mg PO Q6H 5 Days #20 capsule levoFLOXacin [Levaquin] 500 mg PO DAILY 5 Days #5 tablet OxyCODONE/APAP 5/325 [Percocet 5/325 MG] 1 each PO Q6HR PRN 7 Days #25 tablet PRN Reason: POSTOPERATIVE PAIN Metoprolol [Lopressor] 12.5 mg PO BID #15 tablet Continued Collagenase Oint [Santyl] 1 appl TP HS glipiZIDE [Glipizide] 10 mg PO BID Cilostazol [Pletal] 100 mg PO BID Aspirin [Lo-Dose Aspirin EC] 81 mg PO DAILY Lisinopril [Zestril] 5 mg PO DAILY Metformin HCl 1,000 mg PO BID Pioglitazone HCl [Actos] 45 mg PO DAILY Discontinued Acetaminophen [Tylenol] 1,000 mg PO Q6HR PRN #90 tablet PRN Reason: POSTOPERATIVE PAIN No Action Krill/Om-3/Dha/Epa/Phospho/Ast [Krill Oil 1,000 mg Softgel] 1,000 mg PO DAILY Home Medications: Aspirin [Lo-Dose Aspirin EC] 81 mg PO DAILY 09/17/18 [History] Cilostazol [Pletal] 100 mg PO BID 09/17/18 [History] Collagenase Oint [Santyl] 1 appl TP HS 09/17/18 [History] Lisinopril [Zestril] 5 mg PO DAILY 09/17/18 [History] Metformin HCl 1,000 mg PO BID 09/17/18 [History] glipiZIDE [Glipizide] 10 mg PO BID 09/17/18 [History] Pioglitazone HCl [Actos] 45 mg PO DAILY 09/19/18 [History] Clindamycin HCl 300 mg PO Q6H 5 Days #20 capsule 09/21/18 [Rx] Krill/Om-3/Dha/Epa/Phospho/Ast [Krill Oil 1,000 mg Softgel] 1,000 mg PO DAILY 09/21/18 [History] Metoprolol [Lopressor] 12.5 mg PO BID #15 tablet 09/21/18 [Rx] OxyCODONE/APAP 5/325 [Percocet 5/325 MG] 1 each PO Q6HR PRN 7 Days #25 tablet 09/21/18 [Rx] levoFLOXacin [Levaquin] 500 mg PO DAILY 5 Days #5 tablet 09/21/18 [Rx] Allergies/Adverse Reactions: Allergy/AdvReac Type Severity Reaction Status Date / Time steroids Allergy Swelling Uncoded 09/21/18 11:44 of Lip/Tongue/Throat Date of admission: 09/19/18 16:12 Consults: 09/19/18 16:49 Consult to Cardiology [CONS] Routine Comment: Consulting Provider: [facility] [place] Reason for Consult: Cardiac clearance prior to left femoral to popliteal artery bypass graft. Spoke with Dr. Young. Time Notified: 16:45 Call Completed: Yes Procedure(s) Performed: Left femoral to popliteal artery bypass, left lower extremity endarterectomy. Discharging clinician: José Miguel Penny Anticipated date of discharge: 09/21/18 Exam Vital Signs, Last 4 Hours Temp Pulse Resp BP Pulse Ox 09/21/18 07:54 98.6 F 88 18 116/61 96 General: Present: Conversant, No Apparent Distress HEENT: Present: Pupils equal Neck: Absent: JVD Cardiac: Present: Reg Rate and Rhythm, Normal S1 and S2 Lungs: Present: Normal Breath Sounds Neuro: Present: Alert and responsive, Motor nerves grossly intact, Sensory nerves grossly intact Abdomen: Present: Soft, Non-tender Vascular: Present: Normal capillary refill, Pulse, diminished (Right pedal signals are biphasic.), Pulse, normal (Left pedal signals are polyphasic.), Edema (Expected postoperative trace left lower extremity edema), Surgical incisions (Clean dry and intact without erythema or drainage, no hematoma). Absent: Cyanosis Skin: Present: No rashes noted on visualized skin, Wound/ulcer(s) (Left lateral foot ulceration remained stable), Other (Resolving cellulitis of the left forefoot) - Patient Status Disposition: Home, Self-Care Condition: Good Functional capacity at discharge: independent ambulation Overall status at discharge: patient is back to baseline - Discharge Instructions Follow Up With: Bibi Young DO [Partnered Physician] - (4 weeks) José Miguel Penny MD [Partnered Physician] - (2-3 weeks) Additional Instructions: May remove bandages and shower on 09/22/2018. Wash wounds gently and pat to dry. Applied dry gauze to wounds daily for 7 days. No tub baths or swimming until 10/23/2018. Call Dr. Penny at [phone] with questions or concerns.. - Diet and Activity Activity: increase activity as tolerated
[2018-09-21 12:04] VITALS: BP 107/51
[2018-09-21] MEDS ORDERED: Aminoglycoside Consult 1 EACH MC ONE (14:16)
== END 2018-09-21 14:17 | disposition home or self-care (01) | DRG 253 ==
LOC: 2NNU → OBSVTOIN 16:12
PROVIDERS: ADMIT Surgery; ATTEND Surgery

== ENCOUNTER 2018-12-25 06:07 | Inpatient (IN) ==
[~2018-12-25 06:07] MED LIST: Dextrose 50 % in Water (Vial) 30 ML, Sodium Bicarbonate 20 MEQ, Lidocaine 1% 5 ML, Insu... TH ONE; Dextrose 50 % in Water (Vial) 30 ML, Sodium Bicarbonate 20 MEQ, Potassium Chloride 15 M... TH ONE; Norepinephrine 4 MG in 0.9 % Sodium Chloride 250 ML IVC PRN
[2018-12-25] MEDS ORDERED: CeFAZolin Syr 2,000MG/20 ML 2,000 MG/20 ML SYRINGE IVPB ONE ×2 (06:24→06:42)
[2018-12-25] MEDS ORDERED: Albuterol 2.5 MG/3 ML NEBULIZER IH ONE (06:27)
[2018-12-25] MEDS ORDERED: Nitroglycerin 25 MG/250 ML INFUS..BTL IVC ONE (06:41)
[2018-12-25] MEDS ORDERED: NiCARdipine 2.5 MG/10 ML Syringe IVPB ONE (06:42)
[2018-12-25] MEDS ORDERED: *HR* Midazolam HCl 5 MG/5 ML VIAL IVP ONE (06:46)
[2018-12-25] MEDS ORDERED: *HR* PHENYLEPHRINE 1,000 MCG/10 ML SYRINGE IVP ONE ×2 (06:47→10:39)
[2018-12-25] MEDS ORDERED: Famotidine 20 MG/2 ML VIAL ONE (06:47)
[2018-12-25] MEDS ORDERED: *HR* FentaNYL (PF) 1,000 MCG/20 ML VIAL ONE (06:47)
[2018-12-25] MEDS ORDERED: *HR* Etomidate 20 MG/10 ML AMPUL IVP ONE (06:47)
[2018-12-25] MEDS ORDERED: *HR* Rocuronium Bromide 50 MG/5 ML VIAL ONE (06:47)
[2018-12-25] MEDS ORDERED: Protamine Sulfate 250 MG/25 ML VIAL IVP ONE (06:48)
[2018-12-25] MEDS ORDERED: Calcium Gluconate 1,000 MG/10 ML VIAL ONE (06:48)
[2018-12-25] MEDS ORDERED: Tranexamic Acid 1,000 MG/10 ML VIAL ONE ×2 (06:48→09:15)
[2018-12-25] MEDS ORDERED: Chlorhexidine Rinse 15 ML MOUTHWASH MM ONE (06:49)
[2018-12-25] MEDS ORDERED: Verapamil 5 MG/2 ML VIAL ONE (06:49)
[2018-12-25] MEDS ORDERED: Heparin 15,000 UNIT in 0.9 % Sodium Chloride 500 ML IV ONE (07:00)
[2018-12-25] MEDS ORDERED: Norepinephrine 4 MG in 0.9 % Sodium Chloride 250 ML IVC PRN (07:00)
[2018-12-25] MEDS ORDERED: Insulin Human Regular 100 UNIT in 0.9 % Sodium Chloride 100 ML IV PRN (07:00)
[2018-12-25] MEDS ORDERED: Dextrose 50 % in Water (Vial) 30 ML, Sodium Bicarbonate 20 MEQ, Lidocaine 1% 5 ML, Insu... TH ONE (07:00)
[2018-12-25 07:55] LABS: ABG Base Excess -2 mEq/L (-2 to 3); ABG Chloride 108 mEq/L (98-107); ABG Glucose 287 mg/dL (60-95); ABG HCO3 23 mEq/L (21-27); ABG Oxygen Saturation 96 % (95-98); ABG PCO2 43 mmHg (35-45); ABG PH 7.34 pH Units (7.32-7.45); ABG PO2 84 mmHg (85-104); ABG TCO2 25 mEq/L (20-26)
[2018-12-25 09:00] LABS: ABG Base Excess -6 mEq/L (-2 to 3); ABG Chloride 111 mEq/L (98-107); ABG Glucose 223 mg/dL (60-95); ABG HCO3 24 mEq/L (21-27); ABG Ionized Calcium 1.28 mmol/L (1.15-1.35); ABG Oxygen Saturation 100 % (95-98); ABG PCO2 69 mmHg (35-45); ABG PH 7.15 pH Units (7.32-7.45); ABG PO2 443 mmHg (85-104); ABG TCO2 26 mEq/L (20-26)
[2018-12-25] MEDS ORDERED: Chlorhexidine Rinse 15 ML MOUTHWASH MM SCH (09:00)
[2018-12-25] MEDS ORDERED: *HR* Amiodarone 150 MG/3 ML VIAL IVPB ONE (09:08)
[2018-12-25] MEDS ORDERED: Amiodarone Premix 360 MG/200 ML BAG IVC ONE ×2 (09:08→10:49)
[2018-12-25 09:36] LABS: ABG Base Excess -2 mEq/L (-2 to 3); ABG Chloride 105 mEq/L (98-107); ABG Glucose 261 mg/dL (60-95); ABG HCO3 24 mEq/L (21-27); ABG Ionized Calcium 1.13 mmol/L (1.15-1.35); ABG Oxygen Saturation 100 % (95-98); ABG PCO2 46 mmHg (35-45); ABG PH 7.32 pH Units (7.32-7.45); ABG PO2 526 mmHg (85-104); ABG TCO2 25 mEq/L (20-26)
[2018-12-25 10:02] LABS: ABG Base Excess -1 mEq/L (-2 to 3); ABG Chloride 105 mEq/L (98-107); ABG Glucose 212 mg/dL (60-95); ABG HCO3 25 mEq/L (21-27); ABG Ionized Calcium 1.14 mmol/L (1.15-1.35); ABG Oxygen Saturation 100 % (95-98); ABG PCO2 44 mmHg (35-45); ABG PH 7.35 pH Units (7.32-7.45); ABG PO2 438 mmHg (85-104); ABG TCO2 26 mEq/L (20-26)
[2018-12-25 10:41] LABS: ABG Base Excess -4 mEq/L (-2 to 3); ABG Chloride 109 mEq/L (98-107); ABG Glucose 136 mg/dL (60-95); ABG HCO3 24 mEq/L (21-27); ABG Ionized Calcium 1.37 mmol/L (1.15-1.35); ABG Oxygen Saturation 99 % (95-98); ABG PCO2 52 mmHg (35-45); ABG PH 7.26 pH Units (7.32-7.45); ABG PO2 145 mmHg (85-104); ABG TCO2 25 mEq/L (20-26)
[2018-12-25] MEDS ORDERED: Insulin Regular, Human 100 UNIT/ML IV PRN (10:49)
[2018-12-25] MEDS ORDERED: Potassium Chloride 40 MEQ/200 ML BAG IVPB PRN (10:49)
[2018-12-25] MEDS ORDERED: *HR* Dextrose 50 % in Water (Syg) 50 ML SYRINGE IVP PRN (10:49)
[2018-12-25] MEDS ORDERED: Acetaminophen 650 MG RECTAL SUPP RC PRN (10:49)
[2018-12-25] MEDS ORDERED: *HR* OxyCODONE/APAP 5/325 TABLET PO PRN (10:49)
[2018-12-25] MEDS ORDERED: Norepinephrine 4 MG in 0.9 % Sodium Chloride 250 ML IVC SCH (11:00)
[2018-12-25] MEDS ORDERED: 0.9 % Sodium Chloride 1,000 ML IVC SCH (11:00)
[2018-12-25] MEDS ORDERED: Insulin Human Regular 100 UNIT in 0.9 % Sodium Chloride 100 ML IVC SCH (11:00)
[2018-12-25 11:31] LABS: ABG Base Excess -1 mEq/L (-2 to 3); ABG HCO3 26 mEq/L (21-27); ABG Oxygen Saturation 97 % (95-98); ABG PCO2 57 mmHg (35-45); ABG PH 7.27 pH Units (7.32-7.45); ABG PO2 105 mmHg (85-104); ABG TCO2 28 mEq/L (20-26); Blood Gas Modality AF; Blood Gas VT 600 cc
[2018-12-25 11:34] LABS: Basophils # 0.1 K/mcL (0.0-0.2); Basophils % 0.5 %; Eosinophils # 0.8 K/mcL (0.0-0.6); Eosinophils % 3.6 %; Hematocrit 34.9 % (37.5-50.1); Hemoglobin 11.6 g/dL (12.9-16.9); Immature Granulocytes % 0.9 % (0-4); Lymphocytes % 8.4 %; Mean Corpuscular HGB Conc 33.2 g/dL (31.6-35.5); Mean Corpuscular Hemoglobin 30.4 pg (28.0-33.3); Mean Corpuscular Volume 91.4 fL (83.0-100.0); Mean Platelet Volume 11.1 fL (9.4-12.4); Monocytes # 1.6 K/mcL (0.0-1.3); Monocytes % 6.9 %; Neutrophils # 18.5 K/mcL (1.6-8.9); Platelet Count 120 K/mcL (140-400); Red Blood Count 3.82 M/mcL (4.19-5.50); Red Cell Distribution Width 14.6 % (11.5-14.5); Segmented Neutrophils % 79.7 %
[2018-12-25 11:35] LABS: White Blood Count 23.2 K/mcL (4.3-11.1)
[2018-12-25 11:45] LABS: INR 1.2
[2018-12-25 11:48] LABS: Activated Partial Thrombo Time 31.9 Seconds (26.0-36.0)
[2018-12-25 11:49] LABS: BUN/Creatinine Ratio 17 (6-26); Blood Urea Nitrogen 17 mg/dL (8-23); Calcium 9.1 mg/dL (8.6-10.3); Carbon Dioxide 26 mEq/L (23-29); Chloride 110 mEq/L (98-107); Glucose 101 mg/dL (70-105); Magnesium 1.9 mg/dL (1.6-2.6); Osmolality,Calculated 294 (280-300); Sodium 141 mEq/L (136-145); eGFR For African Americans > 60 (> 60); eGFR For Non-African Americans > 60 (> 60)
[2018-12-25 11:53] LABS: Prothrombin Time 13.2 Seconds (9.4-12.1)
[2018-12-25] MEDS ORDERED: *HR* Heparin 10,000 UNIT/10 ML VIAL IV ONE (12:22)
[2018-12-25] MEDS ORDERED: *HR* Magnesium Sulfate 2 GM/50 ML PIGGYBACK IVPB ONE (12:22)
[2018-12-25] MEDS ORDERED: Albumin Human 25% 25 GM/100 ML IV.SOLN IV ONE (12:22)
[2018-12-25] MEDS ORDERED: Lidocaine 2% Syringe 100 MG/5 ML IV ONE (12:22)
[2018-12-25] MEDS ORDERED: Sodium Bicarbonate 50 MEQ/50 ML VIAL IVC ONE (12:22)
[2018-12-25] MEDS ORDERED: *HR* Phenylephrine 10 MG/ML VIAL IVC ONE (12:22)
[2018-12-25] MEDS ORDERED: Mannitol 25% vial 12.5 GM/50 ML VIAL IVP ONE (12:22)
[2018-12-25] MEDS ORDERED: Tranexamic Acid 1,000 MG/10 ML VIAL IVPB ONE (12:22)
[2018-12-25] MEDS: Nitroglycerin 25 MG/250 ML INFUS..BTL IVC SCH ×2 (12:54→23:40)
[2018-12-25] MEDS: Ringers Solution, Lactated 1,000 ML IVC SCH (12:55)
[2018-12-25] MEDS: *HR* FentaNYL (PF) 100 MCG/2 ML VIAL IVP PRN ×3 (12:56→20:18)
[2018-12-25] MEDS: niCARdipine 20 MG/200 ML MLS IVC SCH ×4 (15:06→23:41)
[2018-12-25] MEDS: Amiodarone Premix 360 MG/200 ML BAG IVC SCH (15:19)
[2018-12-25 15:59] LABS: ABG Base Excess -1 mEq/L (-2 to 3); ABG HCO3 25 mEq/L (21-27); ABG Oxygen Saturation 100 % (95-98); ABG PCO2 48 mmHg (35-45); ABG PH 7.33 pH Units (7.32-7.45); ABG PO2 181 mmHg (85-104); ABG TCO2 27 mEq/L (20-26); Blood Gas Modality AF; Blood Gas VT 700 cc
[2018-12-25 16:02] LABS: Hematocrit 35.5 % (37.5-50.1); Hemoglobin 11.9 g/dL (12.9-16.9); Mean Corpuscular HGB Conc 33.5 g/dL (31.6-35.5); Mean Corpuscular Hemoglobin 30.1 pg (28.0-33.3); Mean Corpuscular Volume 89.6 fL (83.0-100.0); Mean Platelet Volume 10.8 fL (9.4-12.4); Platelet Count 100 K/mcL (140-400); Red Blood Count 3.96 M/mcL (4.19-5.50); Red Cell Distribution Width 14.7 % (11.5-14.5); White Blood Count 19.5 K/mcL (4.3-11.1)
[2018-12-25 16:21] LABS: BUN/Creatinine Ratio 20 (6-26); Blood Urea Nitrogen 19 mg/dL (8-23); Carbon Dioxide 24 mEq/L (23-29); Chloride 111 mEq/L (98-107); Glucose 106 mg/dL (70-105); Osmolality,Calculated 293 (280-300); Potassium 4.2 mEq/L (3.5-5.1); Sodium 140 mEq/L (136-145); eGFR For African Americans > 60 (> 60); eGFR For Non-African Americans > 60 (> 60)
[2018-12-25 19:41] LABS: ABG Base Excess -2 mEq/L (-2 to 3); ABG HCO3 24 mEq/L (21-27); ABG Oxygen Saturation 93 % (95-98); ABG PCO2 43 mmHg (35-45); ABG PH 7.35 pH Units (7.32-7.45); ABG PO2 70 mmHg (85-104); ABG TCO2 25 mEq/L (20-26); Blood Gas Modality CPAP/PS; Blood Gas Pressure Support 10 cm H2O
[2018-12-25] MEDS: Chlorhexidine Rinse 15 ML MOUTHWASH MM SCH (20:15)
[2018-12-25 22:37] LABS: ABG Base Excess -2 mEq/L (-2 to 3); ABG HCO3 24 mEq/L (21-27); ABG Oxygen Saturation 91 % (95-98); ABG PCO2 43 mmHg (35-45); ABG PH 7.35 pH Units (7.32-7.45); ABG PO2 64 mmHg (85-104); ABG TCO2 25 mEq/L (20-26)
[2018-12-26] MEDS: *HR* FentaNYL (PF) 100 MCG/2 ML VIAL IVP PRN ×2 (01:21→04:34)
[2018-12-26] MEDS: Amiodarone Premix 360 MG/200 ML BAG IVC SCH (01:23)
[2018-12-26 03:44] LABS: Basophils # 0.1 K/mcL (0.0-0.2); Basophils % 0.3 %; Eosinophils # 0.1 K/mcL (0.0-0.6); Eosinophils % 0.3 %; Hematocrit 32.7 % (37.5-50.1); Hemoglobin 10.9 g/dL (12.9-16.9); Immature Granulocytes % 0.6 % (0-4); Lymphocytes # 1.1 K/mcL (0.6-4.6); Lymphocytes % 6.2 %; Mean Corpuscular HGB Conc 33.3 g/dL (31.6-35.5); Mean Corpuscular Volume 90.1 fL (83.0-100.0); Mean Platelet Volume 11.1 fL (9.4-12.4); Monocytes # 1.6 K/mcL (0.0-1.3); Monocytes % 8.7 %; Neutrophils # 15.2 K/mcL (1.6-8.9); Platelet Count 113 K/mcL (140-400); Red Blood Count 3.63 M/mcL (4.19-5.50); Red Cell Distribution Width 14.8 % (11.5-14.5); Segmented Neutrophils % 83.9 %; White Blood Count 18.1 K/mcL (4.3-11.1)
[2018-12-26 03:59] LABS: BUN/Creatinine Ratio 20 (6-26); Blood Urea Nitrogen 21 mg/dL (8-23); Calcium 8.5 mg/dL (8.6-10.3); Carbon Dioxide 23 mEq/L (23-29); Chloride 107 mEq/L (98-107); Glucose 128 mg/dL (70-105); Osmolality,Calculated 297 (280-300); Potassium 3.5 mEq/L (3.5-5.1); Sodium 141 mEq/L (136-145); eGFR For African Americans > 60 (> 60); eGFR For Non-African Americans > 60 (> 60)
[2018-12-26 04:01] LABS: Prothrombin Time 11.4 Seconds (9.4-12.1)
[2018-12-26 04:03] LABS: Activated Partial Thrombo Time 29.1 Seconds (26.0-36.0)
[2018-12-26] MEDS: niCARdipine 20 MG/200 ML MLS IVC SCH ×2 (04:36→07:49)
[2018-12-26] MEDS: Ringers Solution, Lactated 1,000 ML IVC SCH (05:35)
[2018-12-26] MEDS: Nitroglycerin 25 MG/250 ML INFUS..BTL IVC SCH (07:50)
[2018-12-26] MEDS ORDERED: Pantoprazole 40 MG VIAL IVP SCH (09:00)
[2018-12-26] MEDS ORDERED: *HR* Amiodarone 200 MG TABLET PO SCH (09:00)
[2018-12-26] MEDS: Chlorhexidine Rinse 15 ML MOUTHWASH MM SCH ×2 (10:17→20:10)
[2018-12-26] MEDS ORDERED: *HR* Dextrose 50 % in Water (Syg) 50 ML SYRINGE IVP PRN (10:20)
[2018-12-26] MEDS ORDERED: Dextrose Gel 15 GM/37.5 ML TUBE PO PRN ×2 (10:20)
[2018-12-26] MEDS ORDERED: Acetaminophen 650 MG RECTAL SUPP RC PRN (10:20)
[2018-12-26] MEDS ORDERED: D5% in Water 1,000 ML IVC PRN (10:20)
[2018-12-26] MEDS: Aspirin 81 MG TAB.CHEW PO SCH (12:02)
[2018-12-26] MEDS: *HR* OxyCODONE/APAP 5/325 TABLET PO PRN ×2 (12:02→20:10)
[2018-12-26] MEDS: Insulin LISPRO 300 UNITS/3 ML VIAL SQ SCH ×3 (12:05→17:27)
[2018-12-26] MEDS: *HR* Heparin 5,000 UNIT/ML VIAL SQ SCH (17:23)
[2018-12-26] MEDS: *HR* Amiodarone 200 MG TABLET PO SCH (20:10)
[2018-12-27] MEDS: *HR* OxyCODONE/APAP 5/325 TABLET PO PRN ×2 (04:08→16:27)
[2018-12-27 04:09] LABS: Immature Granulocytes % 0.4 % (0-4); Mean Corpuscular Hemoglobin 29.9 pg (28.0-33.3); Red Cell Distribution Width 14.6 % (11.5-14.5)
[2018-12-27] MEDS: *HR* Heparin 5,000 UNIT/ML VIAL SQ SCH ×2 (04:09→18:56)
[2018-12-27 04:11] LABS: Basophils % 0.3 %; Eosinophils # 0.2 K/mcL (0.0-0.6); Eosinophils % 1.1 %; Hematocrit 32.6 % (37.5-50.1); Hemoglobin 10.7 g/dL (12.9-16.9); Immature Platelets 6.2 % (1.1-6.1); Lymphocytes # 0.9 K/mcL (0.6-4.6); Lymphocytes % 5.9 %; Mean Corpuscular HGB Conc 32.8 g/dL (31.6-35.5); Mean Corpuscular Volume 91.1 fL (83.0-100.0); Mean Platelet Volume 11.2 fL (9.4-12.4); Monocytes # 1.5 K/mcL (0.0-1.3); Monocytes % 9.7 %; Neutrophils # 13.1 K/mcL (1.6-8.9); Red Blood Count 3.58 M/mcL (4.19-5.50); Segmented Neutrophils % 82.6 %; White Blood Count 15.8 K/mcL (4.3-11.1)
[2018-12-27 04:19] LABS: Basophils # 0.1 K/mcL (0.0-0.2); Platelet Count 86 K/mcL (140-400)
[2018-12-27 04:25] LABS: BUN/Creatinine Ratio 18 (6-26); Blood Urea Nitrogen 20 mg/dL (8-23); Calcium 7.9 mg/dL (8.6-10.3); Carbon Dioxide 20 mEq/L (23-29); Chloride 102 mEq/L (98-107); Glucose 250 mg/dL (70-105); Osmolality,Calculated 287 (280-300); Potassium 3.4 mEq/L (3.5-5.1); Sodium 133 mEq/L (136-145); eGFR For African Americans > 60 (> 60); eGFR For Non-African Americans > 60 (> 60)
[2018-12-27] MEDS: Chlorhexidine Rinse 15 ML MOUTHWASH MM SCH ×2 (07:46→20:36)
[2018-12-27] MEDS: *HR* Amiodarone 200 MG TABLET PO SCH ×3 (07:46→20:47)
[2018-12-27] MEDS: Aspirin 81 MG TAB.CHEW PO SCH (07:46)
[2018-12-27] MEDS: Insulin LISPRO 300 UNITS/3 ML VIAL SQ SCH ×4 (07:51→20:33)
[2018-12-27] MEDS ORDERED: Pantoprazole 40 MG VIAL IVP SCH (09:00)
[2018-12-27] MEDS: Famotidine 20 MG TABLET PO SCH (20:27)
[2018-12-28 02:49] LABS: Basophils # 0.1 K/mcL (0.0-0.2); Basophils % 0.5 %; Eosinophils # 0.5 K/mcL (0.0-0.6); Eosinophils % 3.7 %; Hematocrit 28.8 % (37.5-50.1); Hemoglobin 9.6 g/dL (12.9-16.9); Immature Granulocytes % 0.8 % (0-4); Immature Platelets 6.4 % (1.1-6.1); Lymphocytes # 1.7 K/mcL (0.6-4.6); Mean Corpuscular HGB Conc 33.3 g/dL (31.6-35.5); Mean Corpuscular Hemoglobin 29.8 pg (28.0-33.3); Mean Corpuscular Volume 89.4 fL (83.0-100.0); Mean Platelet Volume 11.7 fL (9.4-12.4); Monocytes # 1.1 K/mcL (0.0-1.3); Monocytes % 7.4 %; Neutrophils # 10.9 K/mcL (1.6-8.9); Red Blood Count 3.22 M/mcL (4.19-5.50); Red Cell Distribution Width 14.4 % (11.5-14.5); Segmented Neutrophils % 75.6 %; White Blood Count 14.4 K/mcL (4.3-11.1)
[2018-12-28 02:50] LABS: Platelet Count 90 K/mcL (140-400)
[2018-12-28 03:07] LABS: BUN/Creatinine Ratio 20 (6-26); Blood Urea Nitrogen 27 mg/dL (8-23); Calcium 7.6 mg/dL (8.6-10.3); Carbon Dioxide 21 mEq/L (23-29); Chloride 102 mEq/L (98-107); Glucose 219 mg/dL (70-105); Osmolality,Calculated 280 (280-300); Potassium 2.9 mEq/L (3.5-5.1); Sodium 129 mEq/L (136-145); eGFR For African Americans > 60 (> 60); eGFR For Non-African Americans 55 (> 60)
[2018-12-28] MEDS: *HR* Heparin 5,000 UNIT/ML VIAL SQ SCH ×2 (06:27→17:26)
[2018-12-28] MEDS: Chlorhexidine Rinse 15 ML MOUTHWASH MM SCH ×2 (08:06→20:28)
[2018-12-28] MEDS: Aspirin 81 MG TAB.CHEW PO SCH (08:06)
[2018-12-28] MEDS: *HR* OxyCODONE/APAP 5/325 TABLET PO PRN ×2 (08:06→17:34)
[2018-12-28] MEDS: Famotidine 20 MG TABLET PO SCH ×2 (08:06→20:29)
[2018-12-28] MEDS: *HR* Amiodarone 200 MG TABLET PO SCH ×2 (08:06→20:29)
[2018-12-28] MEDS: Insulin LISPRO 300 UNITS/3 ML VIAL SQ SCH ×4 (08:07→20:29)
[2018-12-29 03:08] LABS: Basophils # 0.1 K/mcL (0.0-0.2); Basophils % 0.6 %; Eosinophils # 0.7 K/mcL (0.0-0.6); Eosinophils % 5.6 %; Hematocrit 30.5 % (37.5-50.1); Immature Granulocytes % 0.7 % (0-4); Lymphocytes # 1.3 K/mcL (0.6-4.6); Lymphocytes % 10.8 %; Mean Corpuscular HGB Conc 32.8 g/dL (31.6-35.5); Mean Corpuscular Hemoglobin 29.3 pg (28.0-33.3); Mean Corpuscular Volume 89.4 fL (83.0-100.0); Mean Platelet Volume 11.1 fL (9.4-12.4); Monocytes # 0.9 K/mcL (0.0-1.3); Monocytes % 7.7 %; Platelet Count 115 K/mcL (140-400); Red Blood Count 3.41 M/mcL (4.19-5.50); Red Cell Distribution Width 14.3 % (11.5-14.5); Segmented Neutrophils % 74.6 %; White Blood Count 12.1 K/mcL (4.3-11.1)
[2018-12-29 03:35] LABS: BUN/Creatinine Ratio 20 (6-26); Blood Urea Nitrogen 25 mg/dL (8-23); Calcium 8.2 mg/dL (8.6-10.3); Carbon Dioxide 19 mEq/L (23-29); Chloride 110 mEq/L (98-107); Glucose 152 mg/dL (70-105); Osmolality,Calculated 293 (280-300); Potassium 3.6 mEq/L (3.5-5.1); Sodium 138 mEq/L (136-145); eGFR For African Americans > 60 (> 60); eGFR For Non-African Americans 59 (> 60)
[2018-12-29] MEDS: *HR* OxyCODONE/APAP 5/325 TABLET PO PRN (05:23)
[2018-12-29] MEDS: *HR* Heparin 5,000 UNIT/ML VIAL SQ SCH (05:24)
[2018-12-29 07:48] VITALS: BP 117/66
[2018-12-29] MEDS: Chlorhexidine Rinse 15 ML MOUTHWASH MM SCH (08:31)
[2018-12-29] MEDS: Insulin LISPRO 300 UNITS/3 ML VIAL SQ SCH (08:33)
[2018-12-29] MEDS: Famotidine 20 MG TABLET PO SCH (08:33)
[2018-12-29] MEDS: Aspirin 81 MG TAB.CHEW PO SCH (08:33)
[2018-12-29] MEDS: *HR* Amiodarone 200 MG TABLET PO SCH (08:33)
== END 2018-12-29 12:23 | disposition home or self-care (01) | DRG 236 ==
LOC: SAMDAY 06:07 → ICNU 09:52 → 2NNU 12-26 13:45
PROVIDERS: ADMIT Thoracic Surgery (Cardiothoracic Vascular Surgery); ATTEND Thoracic Surgery (Cardiothoracic Vascular Surgery)

== ENCOUNTER 2019-09-08 06:14 | Inpatient (IN) ==
[~2019-09-08 06:14] MED LIST changes: -Dextrose 50 % in Water (Vial) 30 ML, Sodium Bicarbonate 20 MEQ, Lidocaine 1% 5 ML, Insu... TH ONE; -Dextrose 50 % in Water (Vial) 30 ML, Sodium Bicarbonate 20 MEQ, Potassium Chloride 15 M... TH ONE; -Norepinephrine 4 MG in 0.9 % Sodium Chloride 250 ML IVC PRN; +Vancomycin 1,000 MG, Sodium Chloride IRRigation 1,000 ML IR ONE
[2019-09-08] MEDS ORDERED: Ringers Solution, Lactated 1,000 ML IVC SCH (06:45)
[2019-09-08] MEDS ORDERED: *HR* FentaNYL (PF) 100 MCG/2 ML VIAL ONE (07:09)
[2019-09-08] MEDS ORDERED: *HR* Midazolam HCl 2 MG/2 ML VIAL ONE (07:09)
[2019-09-08] MEDS ORDERED: *HR* Propofol 200 MG/20 ML VIAL IVP ONE (07:10)
[2019-09-08] MEDS ORDERED: Dexamethasone 4 MG/ML VIAL ONE (07:15)
[2019-09-08] MEDS ORDERED: Lidocaine -MPF 2% 2 ML VIAL ONE ×2 (07:15→07:19)
[2019-09-08] MEDS ORDERED: Ondansetron 4 MG/2 ML VIAL ONE (07:15)
[2019-09-08] MEDS ORDERED: Lidocaine HCL 4 ML Topical Solution (Laryng-O-Jet Kit Sterile Pak) TP ONE ×2 (07:17→14:23)
[2019-09-08] MEDS ORDERED: Vancomycin 1,000 MG VIAL ONE (07:29)
[2019-09-08] MEDS ORDERED: CeFAZolin Syr 2,000MG/20 ML 2,000 MG/20 ML SYRINGE IVPB ONE (07:35)
[2019-09-08] MEDS ORDERED: Vancomycin 1,250 MG/262.5 ML IV.SOLN IVPB ONE ×2 (07:35→19:00)
[2019-09-08] MEDS ORDERED: Ondansetron 4 MG/2 ML VIAL IVP ONE (07:43)
[2019-09-08] MEDS ORDERED: *HR* Promethazine 25 MG/ML VIAL IVP PRN (07:43)
[2019-09-08] MEDS ORDERED: *HR* OxyCODONE Immed Rel 5 MG TABLET PO PRN ×2 (07:43→11:03)
[2019-09-08] MEDS ORDERED: *HR* HYDROmorphone PF 0.5 MG/0.5 ML SYRINGE IVP PRN (07:43)
[2019-09-08] MEDS ORDERED: *HR* Metoprolol 5 MG/5 ML VIAL IVP ONE (08:04)
[2019-09-08] MEDS ORDERED: *HR* PHENYLEPHRINE 1,000 MCG/10 ML SYRINGE IVP ONE ×2 (08:29→15:24)
[2019-09-08] MEDS ORDERED: *HR* HYDROMORPHONE 2 MG/ML VIAL ONE (08:44)
[2019-09-08] MEDS ORDERED: D5% in Water 1,000 ML IVC PRN (11:03)
[2019-09-08] MEDS ORDERED: Acetaminophen 325 MG TABLET PO PRN ×2 (11:03)
[2019-09-08] MEDS ORDERED: *HR* Dextrose 50 % in Water (Vial) 50 ML VIAL IVP PRN (11:03)
[2019-09-08] MEDS ORDERED: Dextrose Gel 15 GM/37.5 ML TUBE PO PRN ×2 (11:03)
[2019-09-08] MEDS ORDERED: Naloxone 0.4 MG/ML INJ IVP PRN (11:03)
[2019-09-08] MEDS ORDERED: *HR* Labetalol 20 MG/4 ML SYRINGE IVP PRN (11:03)
[2019-09-08] MEDS ORDERED: 0.9 % Sodium Chloride 1,000 ML IVC SCH (11:03)
[2019-09-08] MEDS ORDERED: Ondansetron 4 MG/2 ML VIAL IVP PRN (11:03)
[2019-09-08] MEDS ORDERED: *HR* HYDROcodone/Acet 5/325 mg TABLET PO PRN (11:03)
[2019-09-08] MEDS: *HR* OxyCODONE Immed Rel 5 MG TABLET PO PRN ×2 (12:16→18:35)
[2019-09-08] MEDS: Insulin LISPRO 300 UNITS/3 ML VIAL SQ SCH ×3 (12:21→22:06)
[2019-09-08] MEDS ORDERED: Heparin 1,000 UNITS/500 mL 500 ML ONE (14:16)
[2019-09-08] MEDS ORDERED: *HR* Heparin 5,000 UNIT/ML VIAL ONE ×2 (14:20→16:38)
[2019-09-08] MEDS ORDERED: EPHEDrine 50 MG/ML VIAL ONE (15:27)
[2019-09-08] MEDS: GlipiZIDE 5 MG TABLET PO SCH (16:18)
[2019-09-08] MEDS: *HR* HYDROcodone/Acet 5/325 mg TABLET PO PRN ×2 (16:18→22:09)
[2019-09-08] MEDS: CeFAZolin 2 GM/120 ML BAG IVPB SCH (16:55)
[2019-09-09] MEDS: CeFAZolin 2 GM/120 ML BAG IVPB SCH (00:30)
[2019-09-09] MEDS: *HR* OxyCODONE Immed Rel 5 MG TABLET PO PRN ×4 (00:37→23:05)
[2019-09-09] MEDS: *HR* HYDROcodone/Acet 5/325 mg TABLET PO PRN ×3 (04:15→19:57)
[2019-09-09 05:00] LABS: Basophils # 0.1 K/mcL (0.0-0.2); Basophils % 0.5 %; Eosinophils # 0.8 K/mcL (0.0-0.6); Eosinophils % 5.7 %; Hematocrit 24.3 % (37.5-50.1); Immature Granulocytes % 0.5 % (0-4); Lymphocytes # 1.4 K/mcL (0.6-4.6); Lymphocytes % 10.7 %; Mean Corpuscular HGB Conc 31.7 g/dL (31.6-35.5); Mean Corpuscular Hemoglobin 29.5 pg (28.0-33.3); Mean Corpuscular Volume 93.1 fL (83.0-100.0); Mean Platelet Volume 10.7 fL (9.4-12.4); Monocytes # 0.8 K/mcL (0.0-1.3); Neutrophils # 10.2 K/mcL (1.6-8.9); Platelet Count 164 K/mcL (140-400); Red Blood Count 2.61 M/mcL (4.19-5.50); Red Cell Distribution Width 15.4 % (11.5-14.5); Segmented Neutrophils % 76.6 %; White Blood Count 13.3 K/mcL (4.3-11.1)
[2019-09-09 05:02] LABS: Hemoglobin 7.7 g/dL (12.9-16.9)
[2019-09-09 05:31] LABS: BUN/Creatinine Ratio 19 (6-26); Blood Urea Nitrogen 20 mg/dL (8-23); Calcium 8.5 mg/dL (8.6-10.3); Carbon Dioxide 20 mEq/L (23-29); Chloride 113 mEq/L (98-107); Glucose 113 mg/dL (70-105); Osmolality,Calculated 279 (280-300); Potassium 4.4 mEq/L (3.5-5.1); Sodium 133 mEq/L (136-145); eGFR For African Americans > 60 (> 60); eGFR For Non-African Americans > 60 (> 60)
[2019-09-09] MEDS: *HR* Heparin 5,000 UNIT/ML VIAL SQ SCH ×2 (05:54→16:54)
[2019-09-09] MEDS ORDERED: *HR* Heparin 5,000 UNIT/ML VIAL SQ SCH (06:00)
[2019-09-09] MEDS: GlipiZIDE 5 MG TABLET PO SCH ×2 (09:16→16:54)
[2019-09-09] MEDS: Insulin LISPRO 300 UNITS/3 ML VIAL SQ SCH ×4 (10:55→20:04)
[2019-09-10 02:45] LABS: Basophils # 0.1 K/mcL (0.0-0.2); Basophils % 0.5 %; Eosinophils # 0.8 K/mcL (0.0-0.6); Eosinophils % 6.8 %; Hematocrit 22.7 % (37.5-50.1); Hemoglobin 7.4 g/dL (12.9-16.9); Immature Granulocytes % 0.3 % (0-4); Lymphocytes # 1.6 K/mcL (0.6-4.6); Lymphocytes % 14.7 %; Mean Corpuscular HGB Conc 32.6 g/dL (31.6-35.5); Mean Corpuscular Hemoglobin 29.8 pg (28.0-33.3); Mean Corpuscular Volume 91.5 fL (83.0-100.0); Monocytes # 0.8 K/mcL (0.0-1.3); Monocytes % 7.5 %; Neutrophils # 7.8 K/mcL (1.6-8.9); Platelet Count 155 K/mcL (140-400); Red Blood Count 2.48 M/mcL (4.19-5.50); Red Cell Distribution Width 15.4 % (11.5-14.5); Segmented Neutrophils % 70.2 %; White Blood Count 11.1 K/mcL (4.3-11.1)
[2019-09-10 03:04] LABS: BUN/Creatinine Ratio 14 (6-26); Blood Urea Nitrogen 13 mg/dL (8-23); Calcium 9.1 mg/dL (8.6-10.3); Carbon Dioxide 24 mEq/L (23-29); Chloride 107 mEq/L (98-107); Glucose 106 mg/dL (70-105); Osmolality,Calculated 287 (280-300); Sodium 138 mEq/L (136-145); eGFR For African Americans > 60 (> 60); eGFR For Non-African Americans > 60 (> 60)
[2019-09-10] MEDS: *HR* OxyCODONE Immed Rel 5 MG TABLET PO PRN ×4 (05:10→23:11)
[2019-09-10] MEDS: *HR* Heparin 5,000 UNIT/ML VIAL SQ SCH ×2 (05:11→16:11)
[2019-09-10] MEDS: GlipiZIDE 5 MG TABLET PO SCH ×2 (09:31→16:11)
[2019-09-10] MEDS: Insulin LISPRO 300 UNITS/3 ML VIAL SQ SCH ×4 (09:40→20:27)
[2019-09-10] MEDS: *HR* HYDROcodone/Acet 5/325 mg TABLET PO PRN ×2 (12:42→18:27)
[2019-09-11] MEDS: *HR* OxyCODONE Immed Rel 5 MG TABLET PO PRN ×2 (05:18→13:08)
[2019-09-11] MEDS: *HR* Heparin 5,000 UNIT/ML VIAL SQ SCH (05:18)
[2019-09-11 07:30] LABS: Hematocrit 24.4 % (37.5-50.1); Hemoglobin 7.9 g/dL (12.9-16.9)
[2019-09-11] MEDS: GlipiZIDE 5 MG TABLET PO SCH (08:18)
[2019-09-11] MEDS: *HR* HYDROcodone/Acet 5/325 mg TABLET PO PRN (08:18)
[2019-09-11] MEDS: Insulin LISPRO 300 UNITS/3 ML VIAL SQ SCH ×2 (08:18→13:09)
[2019-09-11 10:38] VITALS: BP 129/68
== END 2019-09-11 16:03 | disposition home health service (06) | DRG 240 ==
LOC: SAMDAY 06:14 → 3BNU 07:39
PROVIDERS: ADMIT Surgery; ATTEND Surgery